=== PATIENT | male | born 1960 | race Caucasian/White ===

== ENCOUNTER 2016-12-17 12:47 | Day surgery (SDC) | payer BC ==
[~2016-12-17 12:47] MED LIST: RINGERS SOLUTION,LACTATED 1,000 ML IV PRN
--- OUTSIDE RECORDS SUMMARY | 2016-12-17 12:50 | XMS REPORT | Continuity of Care Document ---
:1960 Author Organization [facility] ([facility]) Address [address] [place] [address] Phone [phone] Care Team Providers Name Role Phone Sarah Ignacio Primary Care Provider [phone] Source Comments This disclosure is being made pursuant to the Care Everywhere program, applicable federal and state laws, and may not contain all informaitonavailable regarding this patient.[facility] ([facility]) Active Allergies and Adverse Reactions Allergen Noted Date Severity Reactions Comments Penicillin G 03/17/2012 Rash Current Medications Prescription Sig. Disp. Refills Start Date End Date Status zolpiDEM (AMBIEN CR) Take 12.5 mg by Active 12.5 mg CR tablet mouth at bedtime. aspirin 81 mg tablet Take 81 mg by Active mouth every 48 hours. atorvastatin (LIPITOR) Take 40 mg by Active 40 mg tablet mouth every evening. lisinopril 40 mg tablet Take 40 mg by Active mouth 2 times daily. nitroglycerin 0.[address] 0.4 mg Active tablet under the tongue every 5 minutes as needed. ketorolac 10 mg tablet Take 10 mg by Active mouth every 4 hours as needed. finasteride 5 mg tablet Take 1 tablet (5 30 tablet 06/03/2015 Active mg total) by mouth daily tamsulosin 0.4 mg Take 1 capsule 30 capsule 06/03/2015 Active capsule (0.4 mg total) by mouth daily Active Problems Problem Noted Date Gross hematuria 03/21/2012 Social History Tobacco Use Types Packs/Day Years Used Date Never Assessed Last Filed Vital Signs Vital Sign Reading Time Taken Blood Pressure 108/72 03/21/2012 1:55 PM CDT Pulse 76 03/21/2012 1:55 PM CDT Temperature 36.9 C (98.4 F) 03/21/2012 1:55 PM CDT Respiratory Rate 16 03/21/2012 1:55 PM CDT Height 1.676 m (5' 6") 03/21/2012 1:55 PM CDT Weight 66.679 kg (147 lb) 03/21/2012 1:55 PM CDT Body Mass Index 23.74 03/21/2012 1:55 PM CDT Oxygen Saturation - - Plan of Care Health Maintenance Due Date Last Done Comments HCV Screening 1960 Hepatitis B Vaccine (1 of 3 - Primary Series) 1960 Tdap Vaccine 1972 Lipid Disorder Screening 1979 MMR Vaccine 1979 Td Vaccine 1979 Colonoscopy 2011 Prostate Cancer Screening 2011 Influenza Vaccine: Seasonal (#1) 04/16/2016 Results from Last 3 Months Not on file
[2016-12-17] MEDS ORDERED: RINGERS SOLUTION,LACTATED 1,000 ML IV ONE ×2 (14:05→14:10)
[2016-12-17] MEDS ORDERED: RINGERS SOLUTION,LACTATED 1,000 ML IV PRN (14:55)
[2016-12-17 15:56] VITALS: BP 95/58
--- NOTE | 2016-12-17 18:39 | OR ---
Operative Report - Dictated Report Narrative: OPERATIVE REPORT DATE OF OPERATION: 12/17/2016 PREOPERATIVE DIAGNOSIS: No prior dedicated colon studies. Family history of colon cancer. POSTOPERATIVE DIAGNOSIS: Diverticulosis otherwise normal exam to the cecum OPERATION: Colonoscopy SURGEON: Sanya Grider MD ANESTHESIA: ANA Banegas CRNA INDICATIONS FOR PROCEDURE: The patient is a 56-year-old male referred for an initial colon screening by Dr. Ignacio. The patient has had no prior dedicated colon studies. His mother had colon cancer at age 80. The patient is currently asymptomatic. FINDINGS: Redundant colon with sigmoid diverticulosis otherwise normal exam to the cecum NARRATIVE OF PROCEDURE: The patient was identified in the holding area, and prior to the administration of anesthetic, a multidisciplinary timeout was observed. With the patient in the left lateral position and after the administration of intravenous sedation, the perineum was inspected. There was no evidence of pilonidal disease or skin breakdown. The external appearance of the anus was normal. Sphincter tone was good. The flexible fiberoptic colonoscope was inserted into the rectum which was insufflated with air. The rectal mucosa and submucosal vascular pattern appeared normal, the prep was seen to be complete. The scope was advanced through the sigmoid colon, which contained numerous not impacted noninflamed diverticular openings. The scope was advanced up the descending colon, and around the splenic flexure where the triangular haustral architecture of the transverse colon was seen. The scope was advanced across the transverse colon, around the hepatic flexure to the cecum, where the confluence of tenia and the ileocecal valve were identified. The mucosa at this level appeared normal. The scope was then slowly withdrawn in a circular fashion so that all aspects of colonic mucosa were inspected. The colon was very redundant and course but normal in caliber. The haustral architecture appeared well preserved throughout with no evidence of external compression. The mucosa and submucosal vascular pattern appeared normal, specifically there was no gross evidence to suggest colitis or inflammatory bowel disease and no AV malformations were seen. The diverticulosis was mild to moderate in degree and confined primarily to the sigmoid colon. No polyps were encountered. The scope was gradually withdrawn to the level of the rectum. As much insufflated air as possible was removed. The scope was withdrawn from the patient and the procedure terminated. The patient tolerated the anesthetic and procedure well without complication and was transferred back to the ambulatory surgery area awake and in stable condition. The patient remained stable throughout a period of postoperative observation. He denied abdominal discomfort, was able to tolerate by mouth intake, and was up without assistance. I shared the operative findings with the patient and he was given copies of the photographs which appear in the medical record. He was discharged home with instructions not to engage in hazardous activity today, but may resume normal activity tomorrow, and advance diet as tolerated. He is to continue those medications as listed in the history and physical exam. RECOMMENDATION: Colon surveillance in 10 years depending upon findings and symptoms Reviewed and electronically signed
== END 2016-12-17 12:48 | disposition home or self-care (01) ==
LOC: AMB 12:47
PROVIDERS: ATTEND Surgery
PROC: 0DJD8ZZ Inspection of Lower Intestinal Tract, Via Natural or Artificial Opening Endoscopic (ICD-10-PCS; principal; 2016-12-17 14:00)
DX: Z12.11 Encounter for screening for malignant neoplasm of colon (principal); K57.30 Diverticulosis of large intestine without perforation or abscess without bleeding; I10 Essential (primary) hypertension; E78.5 Hyperlipidemia, unspecified; F17.200 Nicotine dependence, unspecified, uncomplicated; Z68.23 Body mass index [BMI] 23.0-23.9, adult; Z80.0 Family history of malignant neoplasm of digestive organs